=== PATIENT | female | born 1985 | race Caucasian/White ===

== ENCOUNTER → 2021-05-09 08:40 | Outpatient (CLI) | payer BC, SELFPAY ==
--- NOTE | 2021-05-09 | DI.MRI.S_ITS ---
PROCEDURE: MR SHOULDER LT WO CON INDICATIONS: Pain in left shoulder TECHNIQUE: Noncontrast oblique coronal T2 fast spin echo with fat saturation, oblique sagittal T1 spin echo and T2 fast spin echo with fat saturation, axial T1 spin echo and T2 fast spin echo with fat saturation through the shoulder. COMPARISON: None. FINDINGS: Image quality: Excellent. Rotator cuff: There is supraspinatus, infraspinatus and subscapularis tendinitis. No discrete tendon tear. Sagittal images demonstrate rotator cuff muscle atrophy. Bones and bursae: No bone marrow contusions or fractures. Mild acromioclavicular joint degeneration. The acromion demonstrates conventional anatomy, without an os acromiale. No pathologic subacromial-subdeltoid or subcoracoid bursal fluid is present. Capsule and soft tissues: Labrum appears intact in the absence of intra-articular contrast. The long head of the biceps tendon demonstrates normal location and morphology. The rotator interval appears normal, without fibrosis. The coracohumeral ligament is normal in thickness. IMPRESSION: 1. Supraspinatus, infraspinatus and subscapularis tendinitis. 2. Mild acromioclavicular joint degeneration. Dictated by: Candelario Jose M.D. on 05/09/2021 at 14:05 Approved by: Candelario Jose M.D. on 05/09/2021 at 15:07
== END ==
PROVIDERS: PCP Family Medicine; Referring Provider Family Medicine; Visit Provider Family Medicine
DX: M19.012 Primary osteoarthritis, left shoulder (principal); M25.512 Pain in left shoulder; M77.8 Other enthesopathies, not elsewhere classified
CPT/HCPCS: 73221

== ENCOUNTER 2022-06-01 15:42 | Emergency (ER) | payer BC, SELFPAY ==
[2022-06-01] VITALS (11 sets, daily range): BP systolic 109–123; BP diastolic 56–72; PULSE 88–103; RESP 13–23; TEMP 38; O2SAT 97–100; BMI 22.8
--- NOTE | 2022-06-01 16:43 | ED_ITS ---
HPI - Skin/Abscess/Foreign Bdy General Chief complaint: Skin/Abscess/Foreign Body Stated complaint: Hip pain, Lump Time Seen by Provider: 06/01/22 16:08 Source: patient Mode of arrival: Wheelchair History of Present Illness HPI narrative: Patient his 36-year-old male to female transgender currently undergoing hormone therapy, uses pronouns she/her presenting today with left buttock pain. She reports that it started a few days ago however pain has gotten progressively worse. To the point where she can not sit down. She can bear weight and ambulate however sitting is really not tolerable. Currently lying on her right side. She is currently febrile with a temperature of 100.9? and tachycardic. She is not sure when fever started she took Tylenol earlier for pain which did not help. Denies any sort of injection into that area. Denies any abdominal pain nausea or vomiting no chest pain shortness breath or other symptoms. Related Data Previous Rx's Medication Instructions Recorded doxycycline hyclate 100 mg capsule 100 mg PO BID #20 caps 06/01/22 hydrocodone 5 mg-acetaminophen 325 1 tab PO Q6H PRN pain #10 tabs 06/01/22 mg tablet Allergies Allergy/AdvReac Type Severity Reaction Status Date / Time No Known Drug Allergies Allergy Verified 06/01/22 18:27 Review of Systems Review of Systems ROS Unobtainable: All systems reviewed & are unremarkable except as noted in HPI and below Exam Initial Vital Signs Initial Vital Signs: Vital Signs Temperature 100.4 F H 06/01/22 16:14 Pulse Rate 103 H 06/01/22 16:14 Respiratory Rate 22 06/01/22 16:14 Blood Pressure 115/70 06/01/22 16:14 Pulse Oximetry 100 06/01/22 16:14 Oxygen Delivery Method Room Air 06/01/22 16:14 GENERAL: Alert 36-year-old female appears in pain HEENT: Head atraumatic,EOMI, pupils reactive, face symmetric, moist mucous membranes CARDIOVASCULAR: Regular rate and rhythm without murmurs, rubs or gallops. RESPIRATORY: Breath sounds equal bilaterally, no wheezes rales or rhonchi. ABDOMEN: Soft, nontender. Normoactive bowel sounds all 4 quadrants. No guarding or rebound. EXTREMITIES: Normal range of motion, no clubbing or edema. Neurovascularly intact NEUROLOGICAL: Alert and oriented x4. SKIN: Left gluteal cleft tenderness some swelling noted no significant erythema no fluctuation extremely tender to touch Course Orders Ordered: Discontinued Medications Hydrocodone Bitart/Acetaminophen (Hydrocodone/Acet 5/325 Prepack) 1 bottle MISC SEEINSTR ONE Stop: 06/01/22 19:31 Last Admin: 06/01/22 19:44 Dose: 1 bottle Documented By: GIOVANNI Sodium Chloride (Normal Saline 0.9%) 1,000 mls @ 1,000 mls/hr IV BOLUS ONE Stop: 06/01/22 17:20 Last Infusion: 06/01/22 19:23 Dose: 0 mls/hr Documented By: Admin: 06/01/22 16:53 Dose: 1,000 mls/hr Documented By: CARMEN Ceftriaxone Sodium 2,000 mg/ (Sodium Chloride) 100 mls @ 200 mls/hr IV NOW ONE Stop: 06/01/22 17:19 Last Infusion: 06/01/22 18:23 Dose: 0 mls/hr Documented By: Admin: 06/01/22 17:32 Dose: 200 mls/hr Documented By: VILMA Ketorolac Tromethamine (Ketorolac 30 Mg/Ml Vial) 15 mg IV NOW ONE Stop: 06/01/22 17:19 Last Admin: 06/01/22 17:33 Dose: 15 mg Documented By: VILMA Ondansetron HCl (Ondansetron 4 Mg Odt) 4 mg SL NOW PRN PRN Reason: Nausea And Vomiting Ondansetron HCl (Ondansetron 4 Mg/2 Ml Inj) 4 mg IV NOW PRN PRN Reason: Nausea And Vomiting Vital Signs Vital signs: Vital Signs - 8 hr 06/01/22 16:14 06/01/22 16:42 06/01/22 16:51 Temperature 100.4 F H Pulse Rate 103 H 101 H Respiratory Rate 22 Blood Pressure 115/70 Pulse Oximetry 100 100 100 Oxygen Delivery Method Room Air 06/01/22 16:51 06/01/22 17:00 06/01/22 17:00 Temperature Pulse Rate 100 H Respiratory Rate 22 Blood Pressure 123/63 116/56 L Pulse Oximetry 100 Oxygen Delivery Method MDM - Skin/Abscess/Foreign Bdy Lab Data 06/01/22 16:43 06/01/22 16:43 Labs: Lab Results 06/01/22 06/01/22 06/01/22 Range/Units 16:43 16:43 16:43 WBC 17.1 H (4.5-11.0) X10^3/uL RBC 5.23 H (4.0-5.2) X10^6/uL Hgb 15.8 (12.0-16.0) g/dL Hct 45.5 (36-46) % MCV 87.0 (80-100) fL MCH 30.2 (26-34) PG MCHC 34.8 (30-36) % RDW 12.8 (11.6-14.8) % Plt Count 275 (150-400) X10^3/uL Neut % (Auto) 77.3 H (50-75) % Lymph % (Auto) 10.8 L (25-40) % [place] % (Auto) 10.4 (3-14) % Eos % (Auto) 1.1 L (2-4) % Baso % (Auto) 0.4 (0-2) % Neut # (Auto) 95649 H (2508-2931) /uL Lymph # (Auto) 1900 (1843-7023) /uL [place] # (Auto) 1800 H (0-900) /uL Eos # (Auto) 200 (0-450) /uL Baso # (Auto) 100 (0-100) /uL PT 12.5 (10.1-12.7) SECONDS INR 1.1 (0.9-1.3) APTT 35 (26-36) SECONDS Sodium 135 L (137-145) mmol/L Potassium 3.8 (3.4-5.1) mmol/L Chloride 100 (98-107) mmol/L Carbon Dioxide 26 (22-32) mmol/L BUN 14 (7-17) mg/dL Creatinine 0.79 (0.52-1.04) mg/dL Estimated GFR > 60 (>60) mL/min BUN/Creatinine Ratio 17.7 (6-22) Glucose 79 (70-100) mg/dL Lactate (0.7-2.1) mmol/L Calcium 9.1 (8.4-10.2) mg/dL Total Bilirubin 0.7 (0.2-1.3) mg/dL AST 19 (14-36) IU/L ALT 15 (<35) IU/L Alkaline Phosphatase 54 (38-126) U/L Total Protein 7.4 (6.3-8.2) g/dL Albumin 4.6 (3.5-5.0) g/dL Globulin 2.8 (1.7-4.1) g/dL Albumin/Globulin Ratio 1.6 (1.0-2.8) Lipase 49 (23-300) U/L Procalcitonin 0.03 (<0.5) ng/mL Urine RBC (0-5/HPF) Urine WBC (0-5/HPF) Amorphous Sediment Urine Bacteria (None) Ur Culture Indicated? 06/01/22 06/01/22 Range/Units 16:43 17:01 WBC (4.5-11.0) X10^3/uL RBC (4.0-5.2) X10^6/uL Hgb (12.0-16.0) g/dL Hct (36-46) % MCV (80-100) fL MCH (26-34) PG MCHC (30-36) % RDW (11.6-14.8) % Plt Count (150-400) X10^3/uL Neut % (Auto) (50-75) % Lymph % (Auto) (25-40) % [place] % (Auto) (3-14) % Eos % (Auto) (2-4) % Baso % (Auto) (0-2) % Neut # (Auto) (5460-0386) /uL Lymph # (Auto) (8088-6083) /uL [place] # (Auto) (0-900) /uL Eos # (Auto) (0-450) /uL Baso # (Auto) (0-100) /uL PT (10.1-12.7) SECONDS INR (0.9-1.3) APTT (26-36) SECONDS Sodium (137-145) mmol/L Potassium (3.4-5.1) mmol/L Chloride (98-107) mmol/L Carbon Dioxide (22-32) mmol/L BUN (7-17) mg/dL Creatinine (0.52-1.04) mg/dL Estimated GFR (>60) mL/min BUN/Creatinine Ratio (6-22) Glucose (70-100) mg/dL Lactate 1.0 (0.7-2.1) mmol/L Calcium (8.4-10.2) mg/dL Total Bilirubin (0.2-1.3) mg/dL AST (14-36) IU/L ALT (<35) IU/L Alkaline Phosphatase (38-126) U/L Total Protein (6.3-8.2) g/dL Albumin (3.5-5.0) g/dL Globulin (1.7-4.1) g/dL Albumin/Globulin Ratio (1.0-2.8) Lipase (23-300) U/L Procalcitonin (<0.5) ng/mL Urine RBC 1-5/hpf (0-5/HPF) Urine WBC None seen (0-5/HPF) Amorphous Sediment 1+ Urine Bacteria None seen (None) Ur Culture Indicated? Cult not indicated Urine Dip Bedside Urine Glucose Negative Bedside Urine Bilirubin - Negative Bedside Urine Ketone ++ 40 Urine Specific [place] 1.015 Bedside Urine Occult Blood +/- Bedside Urine pH 6.5 Bedside Urine Protein - Negative Bedside Urine Urobilinogen - Negative Bedside Urine Nitrite - Negative Bedside Urine Leukocytes - Negative Esterase Imaging Data CT scan - abdomen/pelvis: Radiologist's Impression: PROCEDURE:? CT PELVIS W CON ? INDICATIONS:? LEFT swelling abscess ? TECHNIQUE:? After the administration of intravenous contrast, 5 mm thick sections acquired from the iliac crests to the symphysis.? 5 mm coronal and sagittal reformats were acquired.? For radiation dose reduction, the following was used:? automated exposure control, adjustment of mA and/or kV according to patient size.? ? COMPARISON:? None. ? FINDINGS:? Image quality:? Excellent.? ? Peritoneum and bowel:? Bowel loops demonstrate normal wall thickness and caliber.? No free fluid or air.? ? Genitourinary:? Ambiguous genitalia.? Uterus is absent, and there are bilateral inguinal ovoid hernias perhaps related to undescended testicles.? Hypoplastic phallus. ? Nodes and vessels:? No iliac, pelvic, or inguinal adenopathy by size criteria.? Iliac vessels demonstrate normal size and enhancement.? ? Bones:? No suspicious bony lesions.? Ill-defined subcutaneous edema noted overlying the left ischial spine.? No evidence of organized abscess ? Miscellaneous:? No inguinal hernias.? ? IMPRESSION:? ? Subcutaneous edema overlying the left ischial spine may reflect bruising or cellulitis.? No evidence of organized abscess ? ? ? Approved by: Jose Ramirez M.D. on 06/01/2022 at 18:03? [facility] Narrative Medical decision making narrative: Patient 36-year-old presenting with left buttock pain. Physical exam it is obviously tender possibly swollen but no erythema or fluctuation appreciated. CT does confirm a subcutaneous edema but no abscess. She is leukocytosis of 17 febrile and tachycardic. Given dose of Rocephin in the ED fluids and Toradol which seemed to help. After Toradol able to sit up on left buttock. Procalcitonin 0.03 however I do suspect bacterial infection lactate 1.0 no evidence of severe sepsis. We will start on doxycycline of close monitoring. I suspect that this will get worse before it gets better may or may not develop into an abscess. Discussed warning signs and when to return to ED. Discharge Plan Departure Patient Disposition: Home Clinical Impression: Cellulitis, Abscess of skin or subcutaneous tissue Instructions: DI for Skin Abscess Activity Restrictions/Additional Instructions: *You have been diagnosed with cellulitis probable early abscess *What to do: At this time recommend warm baths, warm compresses. Will start you on some antibiotics. This may come closer to the skin surface and may need to be opened however not at this time. *Continue to take medications as directed--> LIZY HERNDON Doxycycline 100 mg twice daily for 10 days [place] 1 tab every 6 hours if needed for severe pain *Follow up with your primary care provider in 2-3 days or call [phone] *Return to ER if you should have increasing redness pain fevers or any new, worsening or concerning symptoms CONTROLLED SUBSTANCE DISCHARGE (Narcotoic/benzodiazepine/Flexeril/Phenergan) 1. You have been prescribed narcotic medications, it does have acetaminophen/Tylenol/paracetamol in it, DO NOT TAKE MORE THAN 4,00mg in 24 hours of Tylenol. TRAMADOL DOES NOT CONTAIN TYLENOL 2. Please understand that we cannot provide further refills of narcotics, benzodiazepines or controlled substances through the ED and her pain management will need to be through your provider. 3. While on these medications you cannot drive or operate heavy machinery. 4. You cannot sign legal documents or perform any duties such as this. 5. As long as you're taking opiate pain medications he should also be taking a stool softener such as Colace, Dulcolax, MiraLAX or prune juice, to help avoid constipation. Prescriptions: New doxycycline hyclate 100 mg capsule 100 mg PO BID Qty: 20 0RF hydrocodone-acetaminophen 5-325 mg tablet 1 tab PO Q6H PRN (Reason: pain) Qty: 10 0RF Referrals: Ariel Pitts MD [Primary Care Provider] - Stand Alone Forms: Patient Portal/API
[2022-06-01] MEDS: SODIUM CHLORIDE 0.9% 1,000 ML 1000 ML IV (16:53)
[2022-06-01 16:58] LABS: INR 1.1 (0.9-1.3); Prothrombin Time 12.5 SECONDS (10.1-12.7)
[2022-06-01 17:00] LABS: Add Manual Diff / Slide Review NO; Basophils Absolute Auto 100 /uL (0-100); Basophils Percent Auto 0.4 % (0-2); Eosinophils Absolute Auto 200 /uL (0-450); Eosinophils Percent Auto 1.1 % (2-4); Hematocrit 45.5 % (36-46); Hemoglobin 15.8 g/dL (12.0-16.0); Lymphocytes Absolute Auto 1900 /uL (1100-4500); Lymphocytes Percent Auto 10.8 % (25-40); Mean Corpuscular HGB Conc 34.8 % (30-36); Mean Corpuscular Hemoglobin 30.2 PG (26-34); Monocytes Absolute Auto 1800 /uL (0-900); Monocytes Percent Auto 10.4 % (3-14); Neutrophils Absolute Auto 13200 /uL (1500-7000); Neutrophils Percent Auto 77.3 % (50-75); Platelet Count 275 X10^3/uL (150-400); Red Blood Cell Count 5.23 X10^6/uL (4.0-5.2); Red Cell Distribution Width 12.8 % (11.6-14.8); White Blood Cell Count 17.1 X10^3/uL (4.5-11.0)
[2022-06-01 17:01] LABS: PTT Partial Thromboplastin Tim 35 SECONDS (26-36)
[2022-06-01 17:03] LABS: Alanine Aminotransferase 15 IU/L (<35); Albumin 4.6 g/dL (3.5-5.0); Albumin Globulin Ratio 1.6 (1.0-2.8); Alkaline Phosphatase 54 U/L (38-126); Aspartate Aminotransferase 19 IU/L (14-36); BUN Creatinine Ratio 17.7 (6-22); Bilirubin Total 0.7 mg/dL (0.2-1.3); Blood Urea Nitrogen 14 mg/dL (7-17); Calcium 9.1 mg/dL (8.4-10.2); Carbon Dioxide 26 mmol/L (22-32); Chloride 100 mmol/L (98-107); Estimated Glomerular Filt Rate > 60 mL/min (>60); Globulin 2.8 g/dL (1.7-4.1); Glucose 79 mg/dL (70-100); Lipase 49 U/L (23-300); Sodium 135 mmol/L (137-145); Total Protein 7.4 g/dL (6.3-8.2)
--- NOTE | 2022-06-01 17:17 | PC.NURSE ---
pt is male to female transgendered. no test done. patient states she does not have periods and cannot be
--- NOTE | 2022-06-01 17:18 | DI.CT.S_ITS ---
PROCEDURE: CT PELVIS W CON INDICATIONS: LEFT swelling abscess TECHNIQUE: After the administration of intravenous contrast, 5 mm thick sections acquired from the iliac crests to the symphysis. 5 mm coronal and sagittal reformats were acquired. For radiation dose reduction, the following was used: automated exposure control, adjustment of mA and/or kV according to patient size. COMPARISON: None. FINDINGS: Image quality: Excellent. Peritoneum and bowel: Bowel loops demonstrate normal wall thickness and caliber. No free fluid or air. Genitourinary: Ambiguous genitalia. Uterus is absent, and there are bilateral inguinal ovoid hernias perhaps related to undescended testicles. Hypoplastic phallus. Nodes and vessels: No iliac, pelvic, or inguinal adenopathy by size criteria. Iliac vessels demonstrate normal size and enhancement. Bones: No suspicious bony lesions. Ill-defined subcutaneous edema noted overlying the left ischial spine. No evidence of organized abscess Miscellaneous: No inguinal hernias. IMPRESSION: Subcutaneous edema overlying the left ischial spine may reflect bruising or cellulitis. No evidence of organized abscess Approved by: Jose Ramirez M.D. on 06/01/2022 at 18:03
[2022-06-01 17:19] LABS: Procalcitonin 0.03 ng/mL (<0.5)
[2022-06-01 17:21] LABS: HEMOLYSIS < 15 (0-50); Potassium 3.8 mmol/L (3.4-5.1)
[2022-06-01 17:32] LABS: Bacteria Urine None Seen; RBC Urine 1-5/HPF (0-5/HPF); WBC Urine None Seen (0-5/HPF)
[2022-06-01] MEDS: cefTRIAXone 2,000 MG in SODIUM CHLORIDE 0.9% 100 ML 200 MG IV (17:32)
[2022-06-01 17:33] LABS: Amorphous Sediment Urine 1+; Culture Indicated Urine Cult Not Indicated
[2022-06-01] MEDS: KETOROLAC 30 MG/ML VIAL 15 MG IV (17:33)
[2022-06-01] MEDS: HYDROCODONE/ACET 5/325 PREPACK 1 BOTTLE MISC (19:44)
== END 2022-06-01 20:04 | disposition home or self-care (01) ==
PROVIDERS: Emergency Provider Emergency Medicine; PCP Family Medicine
DX: L02.31 Cutaneous abscess of buttock (principal); L03.317 Cellulitis of buttock
CPT/HCPCS: 36415; 72193; 80053; 81003; 81015; 83605; 83690; 84145; 85025; 85610; 85730; 87040; 96365; 96375; 99284; J0696; J1885; Q9967

== ENCOUNTER 2022-06-03 06:59 | Emergency (ER) | payer BC, SELFPAY ==
[2022-06-03] VITALS (9 sets, daily range): BP systolic 107–119; BP diastolic 66–80; PULSE 73–108; RESP 16; TEMP 36.5; O2SAT 99–100; BMI 22.8
--- NOTE | 2022-06-03 08:03 | ED.FEMALEGU ---
HPI - Female Genitourinary General Chief complaint: Urogenital-Female Stated complaint: URINATING BLOOD Time Seen by Provider: 06/03/22 07:02 Source: patient Mode of arrival: Family Vehicle History of Present Illness HPI Narrative: 36-year-old male to female transgender currently undergoing hormone replacement therapy returns for the 2nd time in the past week, this time with chief complaint of blood in her urine. She had been seen on June 01 and had very thorough evaluation with resultant diagnosis of hip cellulitis in the absence of abscess. She has been on doxycycline and states pain has continued to be an issue but she denies much in the way of systemic complaints such as fever or chills, perhaps she was a bit nauseated yesterday. This morning she noticed blood in her urine in his having urinary complaints such as dysuria, frequency and perhaps some urgency. She does have a history of kidney infections and kidney stones and states that she does not necessarily think she is having the same type of discomfort associated with prior kidney stones but it is too early to tell at this point. She denies runny nose, sore throat or cough. She has no chest pain or shortness of breath Related Data Previous Rx's Medication Instructions Recorded doxycycline hyclate 100 mg capsule 100 mg PO BID #20 caps 06/01/22 hydrocodone 5 mg-acetaminophen 325 1 tab PO Q6H PRN pain #10 tabs 06/01/22 mg tablet ketorolac 10 mg tablet 10 mg PO Q6H PRN pain #14 tabs 06/03/22 tamsulosin 0.4 mg capsule (Flomax) 0.4 mg PO DAILY #30 caps 06/03/22 Allergies Allergy/AdvReac Type Severity Reaction Status Date / Time No Known Drug Allergies Allergy Verified 06/01/22 18:27 Review of Systems Review of Systems Narrative: GENERAL: Denies chills, fatigue, malaise, fever, sweats. HEENT: Denies sinus pain, ear pain, sore throat, difficulty swallowing, dizziness. RESPIRATORY: Denies dyspnea, cough, wheezing, hemoptysis, sputum. CARDIOVASCULAR: Denies chest pain, palpitations, orthopnea, edema, GASTROINTESTINAL: Denies nausea, vomiting, abdominal pain, diarrhea, constipation, melena. : See HPI MUSCULOSKELETAL: denies weakness, joint pain, or bony pain SKIN: Denies rash, skin lesions, or other NEUROLOGIC: Denies weakness, headache, numbness, change in speech, confusion, seizures, incoordination. PSYCHIATRIC: No concerning psychosocial issues. 12 point review of systems is negative except for those stated above Exam Narrative Exam Narrative: GENERAL: [36] year old patient appears stated age. Well-developed patient, in mild distress. HEAD: Atraumatic. Normocephalic. EYES: Pupils equal round and reactive. Extraocular motions intact. No scleral icterus. No injection or drainage. ENT: Nose without bleeding, purulent drainage. Throat without erythema, tonsillar hypertrophy or exudate. Airway patent. NECK: Trachea midline. Non tender CARDIOVASCULAR: Regular rate and rhythm without murmurs, gallops, or rubs. RESPIRATORY: Clear to auscultation. Breath sounds equal bilaterally. No wheezes, rales, or rhonchi. GASTROINTESTINAL: Abdomen soft, non-tender, nondistended. EXTREMITIES: No edema or joint tenderness. BACK: Nontender without deformity or crepitance. Mild bilateral CVA tenderness NEURO: AOx3. SKIN: No rash or erythema of visible areas Initial Vital Signs Initial Vital Signs: Vital Signs Blood Pressure 117/67 06/03/22 07:05 Course Orders Ordered: Discontinued Medications Sodium Chloride (Normal Saline 0.9%) 1,000 mls @ 1,000 mls/hr IV BOLUS ONE Stop: 06/03/22 09:06 Last Infusion: 06/03/22 09:38 Dose: 0 mls/hr Documented By: Admin: 06/03/22 08:35 Dose: 1,000 mls/hr Documented By: BUSTER Ketorolac Tromethamine (Ketorolac 30 Mg/Ml Vial) 15 mg IV NOW ONE Stop: 06/03/22 08:29 Last Admin: 06/03/22 08:35 Dose: 15 mg Documented By: BUSTER Vital Signs Vital signs: Vital Signs - 8 hr 06/03/22 07:12 Temperature 97.7 F Pulse Rate 97 H Respiratory Rate 16 Blood Pressure 117/67 Pulse Oximetry 100 Oxygen Delivery Method Room Air MDM - Female Genitourinary Lab Data 06/03/22 08:26 06/03/22 08:26 Labs: Lab Results 06/03/22 06/03/22 06/03/22 Range/Units 07:46 08:26 08:26 WBC 17.3 H (4.5-11.0) X10^3/uL RBC 5.16 (4.0-5.2) X10^6/uL Hgb 15.8 (12.0-16.0) g/dL Hct 45.9 (36-46) % MCV 88.9 (80-100) fL MCH 30.6 (26-34) PG MCHC 34.4 (30-36) % RDW 12.7 (11.6-14.8) % Plt Count 266 (150-400) X10^3/uL Neut % (Auto) 85.9 H (50-75) % Lymph % (Auto) 6.5 L (25-40) % [place] % (Auto) 6.2 (3-14) % Eos % (Auto) 1.2 L (2-4) % Baso % (Auto) 0.2 (0-2) % Neut # (Auto) 10882 H (9578-1072) /uL Lymph # (Auto) 1100 (8476-3982) /uL [place] # (Auto) 1100 H (0-900) /uL Eos # (Auto) 200 (0-450) /uL Baso # (Auto) 0 (0-100) /uL Sodium 138 (137-145) mmol/L Potassium 4.1 (3.4-5.1) mmol/L Chloride 102 (98-107) mmol/L Carbon Dioxide 25 (22-32) mmol/L BUN 18 H (7-17) mg/dL Creatinine 0.62 (0.52-1.04) mg/dL Estimated GFR > 60 (>60) mL/min BUN/Creatinine Ratio 29.0 H (6-22) Glucose 85 (70-100) mg/dL Calcium 9.7 (8.4-10.2) mg/dL Total Bilirubin 0.4 (0.2-1.3) mg/dL AST 25 (14-36) IU/L ALT 20 (<35) IU/L Alkaline Phosphatase 75 (38-126) U/L Total Protein 8.1 (6.3-8.2) g/dL Albumin 4.7 (3.5-5.0) g/dL Globulin 3.4 (1.7-4.1) g/dL Albumin/Globulin Ratio 1.4 (1.0-2.8) Urine Color Yellow Urine Appearance Clear Urine pH 6.5 (4.5-8.0) Ur Specific [place] 1.025 (1.000-1.035) Urine Protein Trace H (Negative) Urine Glucose (UA) Negative (Negative) g/dL Urine Ketones 3+ H (NEGATIVE) Urine Occult Blood 1+ H (Negative) Urine Nitrate Negative (Negative) Urine Bilirubin Negative (NEGATIVE) Urine Urobilinogen 1.0 (0.2) E.U./dL Ur Leukocyte Esterase Negative (NEGATIVE) Urine RBC 30-100/hpf H (0-5/HPF) Urine WBC 1-5/hpf (0-5/HPF) Ur Squamous Epith Cells 0-1 /hpf (0-5/HPF) Amorphous Sediment 1+ Urine Bacteria Few (2-10) H (None) Urine Mucus 2+ H (Negative) Ur Culture Indicated? Specimen cultured MDM Narrative Medical decision making narrative: CC: 36-year-old with hematuria and dysuria Complicating co-morbidities: Recent cellulitis, antibiotics and antifungal treatment, hormone therapy Data collected from: Patient Medical records reviewed: Prior notes reviewed in our EMR Differential considered, but not limited to: Kidney stone, UTI versus other Exam documented above, pertinent findings include: No signs of sepsis, abdomen soft, mild bilateral flank tenderness Lab Test results independently reviewed as above. Pertinent findings: Independently reviewed EKG as above Imaging studies independently reviewed: CT KUB notes negative hydronephrosis, 2 mm nonobstructing left-sided kidney stone and redemonstrates cellulitis without abscess Treatments: Patient given saline and Toradol with improvement Discussion: 36-year-old transgender female with hematuria and occasional flank pain. Multiple diagnoses considered as noted above, no evidence of infection in the urine, labs reassuring, renal function without abnormality, imaging shows 2 mm stone without hydro. Pain well controlled, patient tolerating orals, no signs of sepsis. Disposition: see below, along with detailed discharge instructions that have been reviewed with patient as well as indications for ED re-evaluation and additional outpatient follow up Discharge Plan Departure Patient Disposition: Home Clinical Impression: Kidney stone, Hematuria Instructions: DI for Kidney Stones, DI for Hematuria Activity Restrictions/Additional Instructions: *You have been diagnosed with [ hematuria and left-sided kidney stone. ] *What to do: *Please continue to take your regular medications as directed. [x ] New medication prescriptions sent to your pharmacy: [[facility] in [place] ] [ ] New medication written as a paper prescription [ ] No new medications given *Please follow up with your primary care provider in 2-3 days, call for an appointment. Let them know you were seen in the Emergency Department and that we ask that you be seen in follow up. We will electronically transmit a record of today's note if your PCP is in our system *If you do not have a primary care provider please contact the [facility] Resource line at [phone]. They will ask some questions about your medical history and help get you set up with a doctor in the community. *Return to Emergency Department if you should have any new, worsening or concerning symptoms, such as [fever greater than 101 F, shaking chills, worsening pain, persistent vomiting or other bothersome symptoms] Prescriptions: New ketorolac 10 mg tablet 10 mg PO Q6H PRN (Reason: pain) Qty: 14 0RF tamsulosin [Flomax] 0.4 mg capsule 0.4 mg PO DAILY Qty: 30 0RF No Action doxycycline hyclate 100 mg capsule 100 mg PO BID Qty: 20 0RF hydrocodone-acetaminophen 5-325 mg tablet 1 tab PO Q6H PRN (Reason: pain) Qty: 10 0RF Referrals: Ariel Pitts MD [Primary Care Provider] - Stand Alone Forms: Patient Portal/API, Work Release Note
[2022-06-03] MEDS: SODIUM CHLORIDE 0.9% 1,000 ML 1000 ML IV (08:35)
[2022-06-03] MEDS: KETOROLAC 30 MG/ML VIAL 15 MG IV (08:35)
[2022-06-03 08:37] LABS: Add Manual Diff / Slide Review NO; Basophils Absolute Auto 0 /uL (0-100); Basophils Percent Auto 0.2 % (0-2); Eosinophils Absolute Auto 200 /uL (0-450); Eosinophils Percent Auto 1.2 % (2-4); Hematocrit 45.9 % (36-46); Hemoglobin 15.8 g/dL (12.0-16.0); Lymphocytes Absolute Auto 1100 /uL (1100-4500); Lymphocytes Percent Auto 6.5 % (25-40); Mean Corpuscular HGB Conc 34.4 % (30-36); Mean Corpuscular Hemoglobin 30.6 PG (26-34); Mean Corpuscular Volume 88.9 fL (80-100); Monocytes Absolute Auto 1100 /uL (0-900); Monocytes Percent Auto 6.2 % (3-14); Neutrophils Absolute Auto 14800 /uL (1500-7000); Neutrophils Percent Auto 85.9 % (50-75); Platelet Count 266 X10^3/uL (150-400); Red Blood Cell Count 5.16 X10^6/uL (4.0-5.2); Red Cell Distribution Width 12.7 % (11.6-14.8); White Blood Cell Count 17.3 X10^3/uL (4.5-11.0)
[2022-06-03 08:49] LABS: Alanine Aminotransferase 20 IU/L (<35); Albumin 4.7 g/dL (3.5-5.0); Albumin Globulin Ratio 1.4 (1.0-2.8); Alkaline Phosphatase 75 U/L (38-126); Aspartate Aminotransferase 25 IU/L (14-36); Bilirubin Total 0.4 mg/dL (0.2-1.3); Blood Urea Nitrogen 18 mg/dL (7-17); Calcium 9.7 mg/dL (8.4-10.2); Carbon Dioxide 25 mmol/L (22-32); Chloride 102 mmol/L (98-107); Estimated Glomerular Filt Rate > 60 mL/min (>60); Globulin 3.4 g/dL (1.7-4.1); Glucose 85 mg/dL (70-100); HEMOLYSIS < 15 (0-50); Potassium 4.1 mmol/L (3.4-5.1); Sodium 138 mmol/L (137-145); Total Protein 8.1 g/dL (6.3-8.2)
[2022-06-03 09:14] LABS: Appearance Urine UA CLEAR; Bilirubin Urine UA NEGATIVE (NEGATIVE); Color Urine UA YELLOW; Glucose Urine UA NEGATIVE (Negative); Ketones Urine UA 3+ (NEGATIVE); Leukocyte Esterase Urine UA NEGATIVE (NEGATIVE); Nitrite Urine UA NEGATIVE (Negative); Occult Blood Urine UA 1+ (Negative); Protein Urine UA TRACE (Negative); Specific Gravity Urine UA 1.025 (1.000-1.035)
[2022-06-03 09:25] LABS: pH Urine UA 6.5 (4.5-8.0)
[2022-06-03 09:28] LABS: RBC Urine 30-100/HPF (0-5/HPF); Squamous Epithelial Cell Urine 0-1 /HPF (0-5/HPF); WBC Urine 1-5/HPF (0-5/HPF)
[2022-06-03 09:29] LABS: Amorphous Sediment Urine 1+; Bacteria Urine Few (2-10); Culture Indicated Urine Specimen Cultured; Mucus Urine 2+ (Negative)
--- NOTE | 2022-06-03 10:07 | DI.CT.S_ITS ---
PROCEDURE: CT KIDNEY URETER BLADDER (KUB) INDICATIONS: flank pain, hematuria TECHNIQUE: Axial sections were acquired from the lung bases to the pubic symphysis. Coronal and sagittal reformats were performed. For radiation dose reduction, the following was used: automated exposure control, adjustment of mA and/or kV according to patient size. COMPARISON: [facility], CT, CT PELVIS W CON, 06/01/2022, 18:05. FINDINGS: Image quality: This patient is excreting contrast from the contrast injection on the prior day, which mildly limits evaluation the kidneys. Lung bases: Unremarkable. Mammoplasty implants are seen. Heart: No significant findings. URINARY: Right Kidney: No stones or hydronephrosis. Right Ureter: No hydroureter. Left Kidney: No hydronephrosis. A 2 mm nonobstructing left-sided kidney stone is seen. Left Ureter: No hydroureter. Bladder: Normal wall thickness. No stones. ABDOMEN: Liver: Unremarkable. Gallbladder: Unremarkable. Biliary ducts: Unremarkable. Pancreas: Unremarkable. Spleen: Unremarkable. Adrenal Glands: Unremarkable. Stomach and Bowel: Stomach, small bowel loops, and colon are unremarkable. Colonic diverticulosis is seen, without findings of active diverticulitis. Peritoneum: No abnormal intraperitoneal fluid. No free air. Ventral Wall: No hernia. Abdominal Nodes: No enlarged retroperitoneal or mesenteric lymph nodes. Vessels: Aorta and inferior vena cava are normal in size. PELVIS: Pelvic Organs: Genitalia as previously described. Pelvic Nodes: Unremarkable. Miscellaneous: No inguinal hernias are seen. Soft tissue fullness is seen within the medial groins. There is abnormal fatty stranding seen involving the left medial gluteal region. There is mild involvement the gluteal musculature. Bones: Mild levoconvex scoliotic curvature is noted. IMPRESSION: Negative hydronephrosis. 2 mm nonobstructing left-sided kidney stone. Cellulitis involving the left medial gluteal region, with mild involvement of the underlying musculature. No abscess is seen. Additional findings: Diverticulosis, without active diverticulitis Dictated by: Joseph Kaufman M.D. on 06/03/2022 at 9:27 Approved by: Joseph Kaufman M.D. on 06/03/2022 at 9:34
== END 2022-06-03 11:25 | disposition home or self-care (01) ==
PROVIDERS: Emergency Medicine; Emergency Provider Emergency Medicine; PCP Family Medicine
DX: N20.0 Calculus of kidney (principal); R31.9 Hematuria, unspecified
CPT/HCPCS: 36415; 74176; 80053; 81001; 85025; 87086; 96361; 96374; 99284; J1885

== ENCOUNTER → 2023-11-03 13:59 | Outpatient (CLI) | payer BC, SELFPAY ==
--- NOTE | 2023-11-03 14:02 | DI.RAD.S_ITS ---
PROCEDURE: XR HAND LT MIN 3V INDICATIONS: Unspecified osteoarthritis, unspecified site TECHNIQUE: 3 views of the hand(s) acquired. COMPARISON: [facility], CR, XR HAND RT MIN 3V, 11/03/2023, 13:09. FINDINGS: Bones: No fractures or dislocations. Carpal bones are normally aligned. Joint spaces are well preserved. Likely intraosseous cyst in proximal capitate is seen. No gross bony erosive changes. No suspicious bony lesions. Soft tissues: No suspicious soft tissue calcifications. IMPRESSION: No wrist fracture or dislocation. No significant osteoarthritis or changes to suggest inflammatory arthropathy. Dictated by: Kal Cantu M.D. on 11/03/2023 at 18:08 Approved by: Kal Cantu M.D. on 11/03/2023 at 18:10
--- NOTE | 2023-11-03 14:02 | DI.RAD.S_ITS ---
PROCEDURE: XR HAND RT MIN 3V INDICATIONS: Unspecified osteoarthritis, unspecified site TECHNIQUE: 3 views of the hand(s) acquired. COMPARISON: None. FINDINGS: Bones: No fractures or dislocations. Carpal bones are normally aligned. Joint spaces are well preserved. No bony erosive changes. No suspicious bony lesions. Soft tissues: No suspicious soft tissue calcifications. IMPRESSION: Unremarkable radiographic examination of right hand. Dictated by: Kal Cantu M.D. on 11/03/2023 at 18:07 Approved by: Kal Cantu M.D. on 11/03/2023 at 18:07
== END ==
LOC: RAD 14:01
PROVIDERS: PCP Family Medicine; Referring Provider Family Medicine; Visit Provider Family Medicine
DX: M19.90 Unspecified osteoarthritis, unspecified site (principal)
CPT/HCPCS: 73130

== ENCOUNTER → 2023-12-31 11:06 | Outpatient (CLI) | payer BC, SELFPAY ==
--- NOTE | 2023-12-31 11:08 | DI.MRI.S_ITS ---
PROCEDURE: MR CERVICAL SPINE WO CON INDICATIONS: cervical disc bulge TECHNIQUE: Noncontrast sagittal T1 spin echo and T2 fast spin echo, sagittal STIR, foraminal oblique sagittal T2 fast spin echo, and axial gradient echo or T2 fast spin echo through the cervical spine. COMPARISON: None. FINDINGS: Image quality: Excellent. Alignment and Curvature: Straightening of the normal cervical lordosis. Bone Marrow: Marrow demonstrates normal overall signal. Spinal Cord: Visualized spinal cord has normal size and signal. No cerebellar tonsillar herniation. Paraspinous Soft Tissues: No paravertebral masses. Prevertebral soft tissues are normal in thickness. C2-C3: Normal appearance. C3-C4: Disc desiccation and posterior disc osteophyte complex abutting the ventral cord. Mild central canal stenosis. Facet and uncovertebral arthropathy. Moderate to severe right and mild left neural foraminal stenosis. C4-C5: Disc desiccation and minimal posterior disc osteophyte complex. No central canal stenosis. No neural foraminal stenosis. C5-C6: Disc desiccation and moderate height loss. Posterior disc osteophyte complex. Moderate central canal stenosis. Facet and uncovertebral arthropathy. Moderate to severe bilateral neural foraminal stenosis. C6-C7: Disc desiccation and mild posterior disc osteophyte complex asymmetric to the left. Mild central canal stenosis. Facet and uncovertebral arthropathy. Mild bilateral neural foraminal stenosis. C7-T1: Facet arthropathy. No central canal stenosis. Moderate right and mild left neural foraminal stenosis. IMPRESSION: 1. Multilevel degenerative changes of the cervical spine as described above. 2. Moderate central canal stenosis at C5-C6. 3. Moderate to severe neural foraminal stenosis on the right at C3-C4 and bilaterally at C5-C6. Dictated by: Vinny Martínez M.D. on 12/31/2023 at 13:56 Approved by: Vinny Martínez M.D. on 12/31/2023 at 13:59
== END ==
LOC: MRI 11:07
PROVIDERS: PCP Family Medicine; Referring Provider Family Medicine; Visit Provider Family Medicine
DX: M50.222 Other cervical disc displacement at C5-C6 level (principal); M47.812 Spondylosis without myelopathy or radiculopathy, cervical region; M48.02 Spinal stenosis, cervical region
CPT/HCPCS: 72141

== ENCOUNTER → 2024-07-25 14:36 | Outpatient (ROUT) | payer BC, SELFPAY ==
[2024-07-25 15:22] LABS: Influenza A - CEPHEID Flu A NEGATIVE (NEGATIVE); Influenza B - CEPHEID Flu B NEGATIVE (NEGATIVE); Respiratory Syncytial Virus Negative (Negative)
[2024-07-25 15:23] LABS: COVID-19 CEPHEID 4-PLEX PCR Negative (Negative)
== END ==
LOC: LAB 14:36
PROVIDERS: PCP Family Medicine
DX: R25.2 Cramp and spasm (principal); R19.7 Diarrhea, unspecified
CPT/HCPCS: 0241U

== ENCOUNTER → 2024-08-25 15:38 | Outpatient (CLI) | payer BC, SELFPAY ==
--- NOTE | 2024-08-25 15:41 | DI.RAD.S_ITS ---
PROCEDURE: XR LUMBAR SPINE 2-3V INDICATIONS: BACK PAIN TECHNIQUE: Three views of the lumbar spine were acquired. COMPARISON: None. FINDINGS: Bones: Five [id number] vertebrae are present. There is normal bony alignment. No vertebral body compression fractures. No suspicious bony lesions. Soft tissues: Overlying bowel gas pattern is normal. No suspicious soft tissue calcifications. IMPRESSION: No acute bony abnormality. No significant degenerative changes. Dictated by: Damaris Cutler M.D. on 08/26/2024 at 9:04 Approved by: Damaris Cutler M.D. on 08/26/2024 at 9:05
--- NOTE | 2024-08-25 15:41 | DI.RAD.S_ITS ---
PROCEDURE: XR THORACIC SPINE 3V INDICATIONS: BACK PAIN TECHNIQUE: Three views of the thoracic spine were acquired. COMPARISON: None. FINDINGS: Bones: No fractures or dislocations. Minor rightward curvature in the midthoracic spine with the apex at the T6-7 level. No significant subluxation. Normal AP alignment. No suspicious bony lesions. Twelve pairs of ribs are noted, and appear intact where visualized. Partially imaged cervical spine hardware. Soft tissues: No paravertebral stripe thickening. IMPRESSION: Minor midthoracic curvature without subluxation. Dictated by: Damaris Cutler M.D. on 08/26/2024 at 9:00 Approved by: Damaris Cutler M.D. on 08/26/2024 at 9:03
== END ==
PROVIDERS: PCP Family Medicine; Referring Provider Family Medicine; Visit Provider Family Medicine
DX: M54.6 Pain in thoracic spine (principal); G89.29 Other chronic pain
CPT/HCPCS: 72072; 72100